=== PATIENT | female | born 1995 | race Caucasian/White ===

== ENCOUNTER 2017-12-22 11:49 | Emergency (ER) | payer OTHER ==
[2017-12-22 12:01] VITALS: BP 118/81
[2017-12-22] MEDS ORDERED: predniSONE TAB* 20 MG PO ONE (12:16)
[2017-12-22] MEDS ORDERED: Albuterol/Ipratropium NEB.SOL* Albuterol 2.5 MG/Ipratropium 0.5 MG 3 ML INH ONE (12:16)
--- NOTE | 2017-12-22 12:25 | UC ---
Shortness of Breath HPI - HPI Summary HPI Summary: Patient is a 22 y/o F w/ c/o SOB onsetting a week ago and exacerbating last night. She reports allergies for past week, last night she was unable to sleep. Patient has been coughing and bringing up nasal phlegm. She reports wheezing and denies fever. Patient notes she feels tired. On nurse's note, pain is rated 0/10 but in the room she notes some pain with deep breaths this morning. She reports Hx of Sx, but this is worst episode. PMHx of asthma, states she does not have medications. Patient has epilepsy and takes Tegretol, twice a day, reports no missed doses. No surgeries claimed. Patient notes she rarely drinks but has 10-15 cigarettes a day. - History of Current Complaint Stated Complaint: SOB Hx Obtained From: Patient Hx Last Menstrual Period: current Onset/Duration: Lasting Weeks - one week ago, Still Present, Worse Since - last night Timing: Constant Current Severity: None - current pain is denied, but she notes since this morning deep breaths cause pain Aggrevating Factors: Deep Breaths - she notes since this morning deep breaths cause pain Associated Signs & Symptoms: Positive: Cough (Productive) - patient states she brings up nasal phelgm with cough, Wheezing, Other - reports feeling tired. Negative: Fever - Allergy/Home Medications Allergies/Adverse Reactions: Allergies Allergy/AdvReac Type Severity Reaction Status Date / Time bees Allergy Hives Uncoded 12/22/17 12:01 environmental Allergy Unknown Uncoded 12/22/17 12:01 Reaction Details Home Medications: Home Medications Cyanocobalamin TAB* [Vitamin B12 TAB*] 1,000 mcg PO DAILY 12/22/17 [History Confirmed 12/22/17] carBAMazepine TAB(*) [TEGretol TAB(*)] 600 mg PO BID 12/22/17 [History Confirmed 12/22/17] PMH/Surg Hx/FS Hx/Imm Hx Respiratory History: Asthma Neurological History: Other - epilepsy Other Neurological History: epilepsy - Surgical History Surgical History: None - Family History Known Family History: Positive: Seizure Disorder - Social History Alcohol Use: Rare Substance Use Type: Marijuana Substance Use Comment - Amount & Last Used: nightly Smoking Status (MU): Heavy Every Day Tobacco Smoker Type: Cigarettes Amount Used/How Often: 10-15 sig/day Length of Time of Smoking/Using Tobacco: 3 YEARS Have You Smoked in the Last Year: Yes Household Exposure Type: Cigarettes - Immunization History Most Recent Influenza Vaccination: 2012 Most Recent Tetanus Shot: [facility] Most Recent Pneumonia Vaccination: NONE Vaccination Up to Date: Yes Review of Systems Constitutional: Fatigue - patient states she feels weak, Other - NEGATIVE: fever Respiratory: Shortness Of Breath, Cough, Other - wheezing All Other Systems Reviewed And Are Negative: Yes Physical Exam - Summary Physical Exam Summary: Appearance: Well-appearing, Well-nourished Skin: Warm Eyes: Normal ENT: Normal Neck: Supple, nontender Respiratory: Decreased breath sounds bilaterally Cardiovascular: Normal S1, S2. No murmurs. Normal distal pulses in tibial and radial bilaterally. Abdomen: Soft, nontender Musculoskeletal: Normal, Strength/ROM Intact Neurological: Normal, A&Ox3 Psychiatric: Normal General: No acute distress Triage Information Reviewed: Yes Vital Signs: Initial Vital Signs Temp 98.5 F 12/22/17 11:55 Pulse 78 12/22/17 11:55 Resp 16 12/22/17 11:55 BP 118/81 12/22/17 11:55 Pulse Ox 100 12/22/17 11:55 Vital Signs Reviewed: Yes Diagnostics - Radiology CXR Radiology Interpretation Completed By: Radiologist - no active cardiopulmonary disease. [facility] [place] physician reviewed this report. Re-Evaluation - Re-Evaluation First Eval Re-Evaluation Time: 12:59 Change: Improved Comment: Patient reports feeling better, repeat lung exam revealed improved breath sounds. Discussed results of CXR. Patient will be discharged to home. She is agreeable with this plan. Shortness of Breath Dx - Course Course Of Treatment: Patient feels better after medications here in the emergency department, chest x-ray shows bilateral hyperinflation consistent with asthma, no acute consolidations or pneumothorax. Patient instructed to continue nebulizers every 4 hours for the next 2 days, and as necessary thereafter. Also given prescription for azithromycin for concurrent sinus and nasal congestion in the context of current symptoms. Patient family agreed to and understand discharge instructions. - Differential Dx/Diagnosis Provider Diagnoses: Asthma exacerbation, acute sinusitis Discharge - Sign-Out/Discharge Documenting (check all that apply): Patient Departure - discharge All imaging exams completed and their final reports reviewed: Yes - Discharge Plan Condition: Stable Disposition: HOME Prescriptions: Albuterol 2.5MG/3ML (0.083%)* [Ventolin 2.5 MG/3 ML NEB.LEORA*] 2.5 mg INH Q4H PRN #100 each PRN Reason: Wheezing Azithromyxin LEROY (NF) [Z-Leroy (Zithromax) 250 mg tabs #6] 2 tab PO .TODAY, THEN 1 DAILY #6 tab predniSONE TAB* [Deltasone TAB*] 50 mg PO DAILY #4 tab Patient Education Materials: Reactive Airways Disease (ED) Forms: *Work Release Referrals: Sherri Sheppard MD [Primary Care Provider] - Additional Instructions: PLEASE TAKE MEDICATION DIRECTED. PLEASE RETURN IMMEDIATELY FOR ANY WORSENING OR CONCERNING SYMPTOMS. PLEASE MAKE AN APARTMENT TO SEE HER PRIMARY CARE DOCTOR WITHIN 1 WEEK. PLEASE TAKE ALBUTEROL EVERY 4 HOURS FOR THE NEXT 2 DAYS ALONG WITH THE OTHER PRESCRIBED MEDICATIONS. - Billing Disposition and Condition Condition: STABLE Disposition: Home - Attestation Statements Document Initiated by Gabriel: Yes Documenting Scribe: Ady Padilla Provider For Whom Roryibe is Documenting (Include Credential): Kalen Schultz MD Scribe Attestation: Ady Rodriguez, scribed for Kalen Schultz MD on 12/22/17 at 1431. Scribe Documentation Reviewed: Yes Provider Attestation: The documentation as recorded by the Ady flores accurately reflects the service I personally performed and the decisions made by Kalen blake MD
--- NOTE | 2017-12-22 12:49 | RAD ---
INDICATION: Shortness of breath. COMPARISON: Comparison is made with a prior chest x-ray study from July 04, 2011. TECHNIQUE: Dual-energy PA and lateral views of the chest were obtained. FINDINGS: The heart is within normal limits in size. Mediastinal and hilar contours appear within normal limits. The lungs are clear. No pleural effusion is present. IMPRESSION: NO EVIDENCE FOR ACTIVE CARDIOPULMONARY DISEASE.
== END 2017-12-22 13:25 | disposition home or self-care (01) ==
LOC: UCEAST 11:49
DX: J45.901 Unspecified asthma with (acute) exacerbation (principal); J01.90 Acute sinusitis, unspecified; G40.909 Epilepsy, unspecified, not intractable, without status epilepticus; F17.210 Nicotine dependence, cigarettes, uncomplicated; Z91.09 Other allergy status, other than to drugs and biological substances; Z91.030 Bee allergy status; Z79.899 Other long term (current) drug therapy
CPT/HCPCS: 71046; 99212; A9270-GY; G0463; J7512